=== PATIENT | male | born 1985 | race Caucasian/White ===

== ENCOUNTER → 2019-09-20 10:41 | Outpatient (CLI) | payer OTHER, SELFPAY ==
--- NOTE | 2019-09-20 | DI.MRI.S_ITS ---
PROCEDURE: MR SHOULDER RT W CON INDICATIONS: Pain right shoulder TECHNIQUE: After the administration of 12 mL of dilute intra-articular Gadolinium contrast, oblique coronal T1 and T2 spin echo with fat saturation, oblique sagittal T1 spin echo with and without fat saturation, oblique sagittal T2 fast spin echo with fat saturation, axial T1 spin echo with fat saturation through the shoulder. COMPARISON: None. FINDINGS: Image quality: Excellent. Rotator cuff: Tendinosis and low-grade articular and bursal surface partial-thickness tear involving distal supraspinatus near musculotendinous junction is seen. Distal infraspinatus and subscapularis tendons are intact. No full-thickness rotator cuff tendon rupture. No rotator cuff muscle atrophy on sagittal images. Bones and bursae: No bone marrow contusions or fractures. Moderate acromioclavicular joint osteophytic changes are seen with downward osteophyte formation compressing on musculotendinous junction of supraspinatus.. Capsule and soft tissues: There is suggestion of superior anterior labral tear at 12 to 2:00 position would contour irregularity and contrast extension. The glenohumeral ligaments appear intact. The long head of the biceps tendon demonstrates normal location and morphology. The rotator interval appears normal, without fibrosis. The coracohumeral ligament is of normal thickness. No intra-articular bodies. IMPRESSION: 1. Finding is consistent with focal superior anterior labral tear a 12 to 2:00 position. 2. Tendinosis and low-grade articular and bursal surface partial-thickness tear involving distal supraspinatus near musculotendinous junction. No full-thickness rotator cuff tendon rupture. 3. Moderate acromioclavicular joint osteoarthritis. Dictated by: Josiah Reid M.D. on 09/20/2019 at 13:00 Approved by: Josiah Reid M.D. on 09/20/2019 at 13:02
--- NOTE | 2019-09-20 | DI.RAD.S_ITS ---
PROCEDURE: FL SHOULDER INJECTION MR/CT RT INDICATIONS: Pain right shoulder TECHNIQUE: The indications, alternatives, benefits, risks, and complications of the procedure were explained to the patient. Written informed consent was obtained and placed in the chart. The shoulder was examined fluoroscopically and a site for needle placement chosen for entry into the glenohumeral joint from an anterior approach. The skin was prepped and draped in a sterile fashion, and 1% lidocaine infiltrated from skin down to joint capsule. A spinal needle was inserted into the glenohumeral joint, and a small amount of iodinated contrast media injected to confirm intra-articular placement of the needle tip. This was followed by approximately 12 mL dilute solution of a gadolinium containing MR contrast agent. The needle was removed and a dressing was applied. The patient was given postprocedural instructions and sent to the MR suite for MR imaging. FINDINGS: A single fluoroscopic spot image demonstrates intra-articular location of injected iodinated contrast. IMPRESSION: Successful fluoroscopically guided administration of dilute Gadolinium solution into the shoulder joint for MR arthrogram. Dictated by: Masoud Call M.D. on 09/20/2019 at 12:54 Approved by: Masoud Call M.D. on 09/20/2019 at 12:55
== END ==
DX: M25.511 Pain in right shoulder (principal); M75.111 Incomplete rotator cuff tear or rupture of right shoulder, not specified as traumatic; M19.011 Primary osteoarthritis, right shoulder
CPT/HCPCS: 23350; 73222; 77002